=== PATIENT | female | born 1975 | race Caucasian/White ===

== ENCOUNTER 2018-03-15 18:47 | Emergency (ER) | payer MEDICAID ==
[2018-03-15] MEDS: IBUPROFEN 600 MG TAB PO (19:56)
== END 2018-03-15 22:07 | disposition home or self-care (01) ==
LOC: FTE 18:47
DX: S82.891A Other fracture of right lower leg, initial encounter for closed fracture (principal); S99.912A Unspecified injury of left ankle, initial encounter; X58.XXXA Exposure to other specified factors, initial encounter; Y92.9 Unspecified place or not applicable
CPT/HCPCS: 29515; 73610; 73610-RT; 73630-LT; 99284-25

== ENCOUNTER 2018-10-17 20:00 | Emergency (ER) | payer SELFPAY, MEDICAID | END 2018-10-17 21:20 | disposition left against medical advice (07) | LOC: FTE 21:20 | DX: Z53.21 Procedure and treatment not carried out due to patient leaving prior to being seen by health care provider (principal) ==